=== PATIENT | male | born 1970 | race African-American/Black ===

== ENCOUNTER 2016-07-05 10:27 | Emergency (ER) | payer MEDICAID, OTHER ==
[~2016-07-05] VITALS: Ht 177.8 cm; Wt 100.0 kg
[2016-07-05 10:54] VITALS: BP 160/89
[2016-07-05] MEDS ORDERED: BACITRACIN ZINC OINT UDPKT TOP ONE (11:15)
[2016-07-05] MEDS ORDERED: LIDOCAINE HCL 2% 5ML SYRINGE IV ONE (11:15)
[2016-07-05] MEDS ORDERED: LIDOCAINE HCL 1% 20ML VIAL (Pyxis) INJ INFIL ONE (11:30)
[2016-07-05] MEDS ORDERED: LIDOCAINE HCL 1% 20ML VIAL (Pyxis) INJ INJ SCH (11:45)
== END 2016-07-05 12:44 | disposition home or self-care (01) ==
LOC: ER 11:10
DX: L02.31 Cutaneous abscess of buttock (principal); F41.9 Anxiety disorder, unspecified
CPT/HCPCS: 99283; J3490; Z7610

== ENCOUNTER 2017-06-06 07:17 | Emergency (ER) | payer MEDICAID ==
[~2017-06-06] VITALS: Ht 182.9 cm; Wt 95.0 kg
[2017-06-06] MEDS ORDERED: LIDOCAINE HCL/EPINEPHRINE 1%-EPI 1:100,000 20 ML VIAL INFIL ONE (08:15)
[2017-06-06] MEDS ORDERED: HYDROCODONE/ACETAMINOPHEN 10/325MG TABLET PO ONE (08:15)
[2017-06-06 09:06] VITALS: BP 130/88
== END 2017-06-06 09:07 | disposition home or self-care (01) ==
LOC: ER 07:26
DX: L02.31 Cutaneous abscess of buttock (principal); F41.9 Anxiety disorder, unspecified; Z88.0 Allergy status to penicillin
CPT/HCPCS: 10060; 87070; 87205; 99284; J3490; X7700; Z7610